=== PATIENT | male | born 1970 | race Caucasian/White ===

== ENCOUNTER 2018-02-07 16:04 | Emergency (ER) | payer MEDICARE, MEDICAID ==
[2018-02-07 16:51] LABS: Mean Corpuscular Hemoglobin 20.6 pg (28.0-32.0); Mean Corpuscular Hgb Conc. 28.6 g/dL (32.0-36.0); Platelet Count (auto) 393 10^3/uL (140-450); Red Blood Cells 3.05 10^6/uL (4.5-5.90)
[2018-02-07 17:00] LABS: Red Cell Distribution Width 21.5 % (11.8-14.3)
[2018-02-07 17:05] LABS: Basophils % (manual) 0 (0.0-2.0); Blast Cells 0; Metamyelocytes % 0; Myelocytes % 0; Promyelocytes % 0; Reactive Lymphocytes 0
[2018-02-07 17:06] LABS: Hemoglobin 6.3 g/dL (13.5-17.5)
[2018-02-07 17:12] LABS: Albumin 2.4 g/dL (3.4-5.0); BUN/Creatinine Ratio 14.1; Potassium 3.8 mmol/L (3.5-5.1)
[2018-02-07 17:15] LABS: Bilirubin, Total 0.1 mg/dL (0.2-1.0); Total Protein 6.2 g/dL (6.4-8.2)
[2018-02-07 17:46] LABS: Band Neutrophils % (manual) 2; Lymphocytes % (manual) 27 (10.0-50.0); Monocytes % (manual) 6 (0-12)
[2018-02-07 17:47] LABS: Eosinophils % (manual) 2 (0-7)
[2018-02-07 21:11] VITALS: BP 115/52
[2018-02-07 21:31] VITALS: BP 113/69
[2018-02-07 22:33] VITALS: BP 117/67
[2018-02-07 22:51] VITALS: BP 117/67
[2018-02-07 23:06] VITALS: BP 115/65
[2018-02-08 00:33] VITALS: BP 115/69
== END 2018-02-08 00:37 | disposition home or self-care (01) ==
LOC: ER 16:04
DX: D64.9 Anemia, unspecified (principal); E07.9 Disorder of thyroid, unspecified
CPT/HCPCS: 36415; 36430; 80053; 85007; 85027; 86850; 86900; 86901; 86920; 99285; P9016

== ENCOUNTER 2018-07-27 16:53 | Emergency (ER) | payer MEDICAID, MEDICARE ==
[~2018-07-27] VITALS: Ht 154.9 cm; Wt 79.4 kg
[2018-07-27 17:01] VITALS: BP 175/68
[2018-07-27] MEDS ORDERED: FLUORESCEIN SOD 1 MG TEST STRIP EACHEYE ONE (19:00)
[2018-07-27] MEDS ORDERED: TETRACAINE HCL 0.5% OPTH(EYE) SOLN 4ML EACHEYE ONE (19:00)
[2018-07-27] MEDS ORDERED: LORazepam 2MG/ML-1ML VIAL IM ONE (20:45)
== END 2018-07-27 21:59 | disposition home or self-care (01) ==
LOC: ER 17:00
DX: H10.31 Unspecified acute conjunctivitis, right eye (principal); J32.0 Chronic maxillary sinusitis; H11.003 Unspecified pterygium of eye, bilateral; I10 Essential (primary) hypertension; E07.9 Disorder of thyroid, unspecified
CPT/HCPCS: 70450; 96372; 99284; J2060

== ENCOUNTER 2018-08-04 15:12 | Emergency (ER) | payer MEDICARE, MEDICAID ==
[~2018-08-04] VITALS: Ht 167.6 cm; Wt 77.1 kg
[2018-08-04 15:36] VITALS: BP 124/83
[2018-08-04] MEDS ORDERED: LORazepam 2MG/ML-1ML VIAL IM ONE (15:45)
== END 2018-08-04 17:43 | disposition home or self-care (01) ==
LOC: ER 15:12 → EDBD 15:12 → ER 17:43
DX: S16.1XXA Strain of muscle, fascia and tendon at neck level, initial encounter (principal); I10 Essential (primary) hypertension; E07.9 Disorder of thyroid, unspecified; W10.9XXA Fall (on) (from) unspecified stairs and steps, initial encounter; Y93.89 Activity, other specified; Y92.813 Airplane as the place of occurrence of the external cause; Y99.8 Other external cause status
CPT/HCPCS: 70450; 72125; 72192; 96372; 99284; J2060

== ENCOUNTER 2018-09-20 11:10 | Emergency (ER) | payer MEDICARE, MEDICAID ==
[~2018-09-20] VITALS: Ht 154.9 cm; Wt 68.0 kg
[2018-09-20 11:27] VITALS: BP 119/83
== END 2018-09-20 13:24 | disposition home or self-care (01) ==
LOC: ER 11:10
DX: M10.072 Idiopathic gout, left ankle and foot (principal); H66.93 Otitis media, unspecified, bilateral; I10 Essential (primary) hypertension; E07.9 Disorder of thyroid, unspecified
CPT/HCPCS: 73630